=== PATIENT | female | born 1990 | race African-American/Black ===

== ENCOUNTER 2016-11-10 11:38 | Emergency (ER) | payer OTHER ==
[~2016-11-10] VITALS: Ht 154.9 cm; Wt 49.9 kg
--- NOTE | ~2016-11-10 | CR127 ---
[facility] A Service of [facility] & [facility] RADIOLOGY TEXT RESULTS PATIENT: DIGNA SANDOVAL LOCATION: CFTX : [birth year] UNIT #: [id number] AGE: [address]: Orin Paulino SEX: F ORDER DR: [id number] [facility] [address] [place], [place] [address] [id number] E MR#: [id number] Acc #: [id number] NAME: DIGNA SANDOVAL : 1990 SEX: F STUDY DATE/TIME: 11/10/2016 12:17 UNIT: [facility] ROOM: STUDY DESCRIPTION: CR Foot Complete Min 3 View Rt Attending Physician: Orin Paulino P.A.-C. Ordering Physician: Orin Paulino P.A.-C. Primary Care Physician: Primary Care Physician No MEDICAL IMAGING REPORT This report is preliminary unless electronic signature is present EXAM Right foot, 11/10 INDICATIONS Foot pain across the second-fourth toes for 2 days. No trauma. FINDINGS The tarsal, metatarsal, and phalangeal elements are all anatomically normal in position and alignment. There are no articular defects. No fractures or radiopaque foreign bodies in the soft tissues are apparent. IMPRESSION Normal foot. Dictated by... Javier Gomez Jr., M.D. THIS IS AN ELECTRONICALLY VERIFIED REPORT Javier Gomez Jr., M.D. at 11/11/2016 7:10 AM JORGE/roseanna TD: 11/10/2016 22:27 JOB #: [id number] MEDICAL IMAGING REPORT Page 1 of 1 COPY
== END 2016-11-10 13:05 | disposition home or self-care (01) ==
LOC: CED 11:38 → CFTX 11:38
DX: M79.671 Pain in right foot (principal); F17.200 Nicotine dependence, unspecified, uncomplicated
CPT/HCPCS: 29405; 73630; 99283

== ENCOUNTER 2016-12-08 10:23 | Emergency (ER) | payer OTHER ==
[~2016-12-08] VITALS: Ht 154.9 cm; Wt 49.9 kg
== END 2016-12-08 11:33 | disposition left against medical advice (07) ==
LOC: CED 10:23
DX: Z53.21 Procedure and treatment not carried out due to patient leaving prior to being seen by health care provider (principal)
CPT/HCPCS: J2405